=== PATIENT | female | born 1950 | race Caucasian/White ===

== ENCOUNTER 2020-10-03 08:21 | Emergency (ER) | payer MEDICARE, OTHER, SELFPAY ==
--- NOTE | ~2020-10-03 | XR_ITS ---
EXAMINATION: XR lumbar spine 2-3V DATE: 10/03/2020 09:02 INDICATION: Back pain. TECHNIQUE: 3 views of lumbar spine were obtained. COMPARISON: CT abdomen and pelvis 10/12/2015 FINDINGS: There is 7 degrees dextrocurvature of lumbar spine. There is 4 mm retrolisthesis of L1 on L 2 and 3 mm retrolisthesis of L2 on L3. There is a compression fracture of superior endplate with less than 1/5 loss of height, new from 10/12/2015. There is multilevel mild to moderate facet joint osteoar thritis. Surgical clips in the right upper quadrant are likely from cholecystectomy. There is severe ly decreased disc height at L1-L2. IMPRESSION: 1. Compression fracture of L5, most likely chronic. 2. Severe degenerative disc disease at L1-L2. Reviewed, dictated and finalized at location A.
--- NOTE | ~2020-10-03 | CT_ITS ---
EXAMINATION: CT lumbar spine wo con DATE: 10/03/2020 10:07 INDICATION: Compression fracture. TECHNIQUE: Computed tomography (CT) of the lumbar spine was performed without intravenous contrast. A utomated exposure control and iterative reconstruction technique were employed. The dose-length produ ct was 162.50 mGy-cm. COMPARISON: Lumbar spine radiographs 10/03/2020 FINDINGS: There is 5 degrees dextrocurvature of lumbar spine. There is 4 mm retrolisthesis of L1 on L 2. There is a chronic burst fracture of superior endplate of L5 with 1/5 loss of height. There is sev erely decreased disc height at L1-L2 with endplate remodeling. The following disc levels are specific ally discussed: L1-L2: The disc is bulging. There is mild bilateral facet joint osteoarthritis. There is mild bilater al neural foraminal stenosis. There is mild central canal stenosis. L2-L3: The disc is bulging. There is mild bilateral facet joint osteoarthritis. There is mild bilater al neural foraminal stenosis. There is mild central canal stenosis. L3-L4: The disc is bulging. There is mild right and moderate left facet joint osteoarthritis. There i s mild bilateral neural foraminal stenosis. There is mild central canal stenosis. L4-L5: The disc is bulging. There is mild bilateral facet joint osteoarthritis. There is mild bilater al neural foraminal stenosis. There is mild central canal stenosis. L5-S1: The disc is bulging. There is moderate right and severe left facet joint osteoarthritis. There is mild bilateral neural foraminal stenosis. There is mild central canal stenosis. IMPRESSION: 1. No acute fracture. 2. Severe lumbar spondylosis. Reviewed, dictated and finalized at location A.
[2020-10-03 08:33] VITALS: BP 148/61; PULSE 68; RESP 20; TEMP 36.7; O2SAT 100
--- NOTE | 2020-10-03 08:40 | PC.NURSE ---
PT ATTEMPTED TO PROVIDE URINE SAMPLE. STATES UNABLE TO VOID AT THIS TIME. STATES WILL TRY AGAIN LATER. WILL CONTINUE TO MONITOR
[2020-10-03 09:09] LABS: Basophils Percent Auto 0.6 % (0.2-1.2); Eosinophils Absolute Auto 0.1 K/mm3 (0-0.3); Hematocrit 42.4 % (37.0-47.0); Hemoglobin 14.1 g/dL (12.0-15.0); Immature Granulocyte Absolute 0.01 K/mm3 (0.00-0.031); Immature Granulocyte Percent A 0.2 % (0-0.5); Lymphocytes Absolute Auto 1.39 K/mm3 (0.9-3.2); Lymphocytes Percent Auto 26.7 % (18.3-44.2); Mean Corpuscular HGB Conc 33.3 g/dl (32-36); Mean Corpuscular Hemoglobin 30.5 pg (26-34); Mean Corpuscular Volume 91.6 fl (80-100); Monocytes Absolute Auto 0.3 K/mm3 (0.1-0.6); Monocytes Percent Auto 6.1 % (2.6-8.5); Neutrophils Absolute Auto 3.4 K/mm3 (1.3-6.7); Neutrophils Percent Auto 65.4 % (45.5-73.1); Platelet Count Result 266 k/mm3 (150-375); Red Blood Count 4.63 M/mm3 (4.2-5.4); Red Cell Distribution Width 12.6 % (11.5-14.5); White Blood Count 5.2 K/mm3 (4.5-10.0)
[2020-10-03] MEDS: KETOROLAC 15 MG/ML VIAL (*BKC) IV PUSH (09:11)
[2020-10-03 09:20] LABS: Alanine Aminotransferase 17 U/L (4-35); Albumin Level 4.7 g/dL (3.5-5.1); Alkaline Phosphatase 87 U/L (38-126); Anion Gap 9 mmol/L (8-16); Aspartate Amino Transferase 28 U/L (14-36); Bilirubin,Total 0.8 mg/dL (0.2-1.3); Blood Urea Nitrogen 17 mg/dL (7-17); Calcium 9.7 mg/dL (8.4-10.2); Carbon Dioxide 29 mmol/L (22-30); Chloride 104 mmol/L (98-107); Estimated CRCL calculation 49 ml/min; Estimated Glomerular Filt Rate > 60; Glucose 118 mg/dL (65-105); Sodium 142 mmol/L (137-145)
--- NOTE | 2020-10-03 09:41 | ED.BACK ---
HPI - Back Pain/Injury General Chief Complaint: Back Pain/Injury Stated Complaint: Possible Kidney Stones Time Seen by Provider: 10/03/20 08:34 Source: patient Mode of arrival: ambulatory Limitations: no limitations History of Present Illness HPI Narrative: This is a 70 year old female who presents for evaluation of low back pain. She developed low back pain yesterday. Her pain has been constant but nonradiating. She states her pain is worse with bending and movement. She denies any trauma. She last took tylenol last night and her pain is 8/10. She denies dysuria, gross hematuria, urinary retention, urinary or bowel incontinence, fever chills, numbness, tingling or weakness. Related Data Home Medications Medication Instructions Recorded Confirmed aspirin 81 mg tablet,delayed 81 mg PO DAILY 01/09/20 01/31/20 release atorvastatin 40 mg tablet 40 mg PO DAILY 01/09/20 01/31/20 cholecalciferol (vitamin D3) 50 100 mcg PO DAILY cap 01/09/20 01/31/20 mcg (2,000 unit) capsule lisinopril 20 mg tablet 20 mg PO DAILY 01/09/20 01/31/20 metoprolol succinate 100 mg 100 mg PO BID 01/09/20 01/31/20 tablet,extended release 24 hr nitroglycerin 0.4 mg sublingual 0.4 mg SUBLINGUAL Q5M PRN 01/09/20 01/31/20 tablet amlodipine 5 mg tablet 10 mg PO DAILY tablet 01/31/20 01/31/20 Allergies Allergy/AdvReac Type Severity Reaction Status Date / Time meperidine Allergy Severe RED STREAK Unverified 10/03/20 11:10 UP ARM IMMED AFTER INJECTION propoxyphene AdvReac Mild VOMITING Unverified 10/03/20 11:10 codeine AdvReac Unknown Nausea Verified 10/03/20 11:10 morphine AdvReac Unknown Nausea Verified 10/03/20 11:10 narcotics AdvReac Intermediate Nausea Uncoded 10/03/20 11:10 Review of Systems Review of Systems: All systems reviewed & are unremarkable except as noted in HPI and below PMFSH Past Medical History Medical History Allergies CAD (coronary artery disease) HTN (hypertension) Mixed hyperlipidemia Osteoporosis Vitamin D deficiency Surgical History Surgical History History of heart artery stent 2 stents in 2012 History of hysterectomy History of repair of rotator cuff Family History Family History (Updated 01/31/20 @ 07:49 by Anju Dalton [facility]) Mother Carcinoma of colon Cerebrovascular accident Father Family history of pancreatic cancer Social History Social History (Updated 01/31/20 @ 08:02 by Anju Dalton CMA) Smoking status: Never smoker Alcohol intake: current Gender identity (if verbalized by the patient): Female Exam Const: General: alert Nutritional Appearance: thin Eyes: EOM: EOMs intact bilaterally Resp: Effort & Inspection: normal respiratory effort and no retractions Auscultation: clear to auscultation bilaterally Cardio: Rate: regular rate Rhythm: regular rhythm Heart sounds: no murmurs GI: GI Palp: Yes Soft to palpation, No Tenderness to palpation present (GI) and No Guarding due to palpation present (GI) Auscultation: normal bowel sounds Neuro: General: patient oriented x3, moves all extremities and CN's II-XI intact bilaterally Psych: Mental Status: mental status grossly normal Affect: normal affect Course Reevaluation(s) Reevaluation #1: I have reviewed with patient CT scan showing chronic L5 fracture. She will be treated for a UTI Date: 10/03/20 Time: 11:55 Vital Signs Vital signs: Vital Signs Temperature 98.1 F 10/03/20 08:33 Pulse Rate 68 10/03/20 08:33 Respiratory Rate 20 10/03/20 08:33 Blood Pressure 148/61 H 10/03/20 08:33 Pulse Oximetry 100 10/03/20 08:33 Temperature 98.1 F 10/03/20 08:33 Pulse Rate 60 10/03/20 12:26 Respiratory Rate 20 10/03/20 12:26 Blood Pressure 110/80 10/03/20 12:26 Pulse Oximetry 99 10/03/20 12:26 MDM - Back Pain/Injury Medical Records
[2020-10-03 10:40] VITALS: BP 105/88; PULSE 62; RESP 20; O2SAT 100
[2020-10-03 11:26] LABS: Add Urine Microscopic? YES; Appearance Urine Cloudy (Clear); Bacteria Urine Trace /hpf; Bilirubin Urine Negative (Negative); Blood Urine 1+ (Negative); Color Urine Yellow (Yellow); Glucose Urine UA Negative (Negative); Ketones Urine Negative (Negative); Leukocyte Esterase Ur Trace LEU/UL (Negative); Mucus Urine Rare /lpf; Nitrate Urine Positive (Negative); Protein Urine Negative (Negative); Specific Grav Ur 1.016 (1.001-1.035); Squamous Epithelial Cell Urine Few /hpf (Few); WBC Urine 16-20 /hpf
[2020-10-03 12:26] VITALS: BP 110/80; PULSE 60; RESP 20; O2SAT 99
== END 2020-10-03 12:27 | disposition home or self-care (01) ==
PROVIDERS: Emergency Provider General Practice; PCP Internal Medicine
DX: N39.0 Urinary tract infection, site not specified (principal); M48.56XA Collapsed vertebra, not elsewhere classified, lumbar region, initial encounter for fracture; I25.10 Atherosclerotic heart disease of native coronary artery without angina pectoris; I10 Essential (primary) hypertension; E78.2 Mixed hyperlipidemia; M81.0 Age-related osteoporosis without current pathological fracture; E55.9 Vitamin D deficiency, unspecified; Z95.5 Presence of coronary angioplasty implant and graft; Z79.82 Long term (current) use of aspirin; M51.36 Other intervertebral disc degeneration, lumbar region; M47.816 Spondylosis without myelopathy or radiculopathy, lumbar region
CPT/HCPCS: 36415; 72100; 72131; 80053; 81001; 85025; 87077; 87086; 87088; 87186; 96374; 99284; J1885

== ENCOUNTER → 2020-11-21 07:58 | Outpatient (CLI) | payer MEDICARE, OTHER, SELFPAY ==
--- NOTE | ~2020-11-21 | MM_ITS ---
EXAMINATION: MM screening [facility] BI w francisca HISTORY: Screening mammogram TECHNIQUE: Craniocaudal and mediolateral oblique 3-D tomosynthesis images were obtained and synthetic 2-D images were generated. CAD analysis was submitted and interpreted. COMPARISON: 08/25/2017, 06/23/2014, 04/01/2013 BREAST PARENCHYMAL COMPOSITION: The breasts are heterogeneously dense, which may obscure small masses . FINDINGS: There is no evidence of suspicious mass, calcification, or architectural distortion to sugg est malignancy in either breast. There has been no suspicious interval change. IMPRESSION: 1. No mammographic evidence of malignancy. 2. Recommend routine screening mammography in one year. BI-RADS Category 1: Negative Reviewed, dictated and finalized at location A.
--- NOTE | ~2020-11-21 | DEXA_ITS ---
Bone Density Report Name: Leni Dietrich Age: 70 Sex: Female Ethnicity: White Date of : 1950 Indication: postmenopausal osteoporosis; height loss; prior fracture; hysterectomy; Referring Provider: Elisabeth Sanchez Study: Bone densitometry was performed. Exam Date: November 21, 2020 Accession number: [id number] Bone Density: Region BMD T-score Z-score Classification AP Spine (L1-L4) 0.672 -3.4 -1.2 Osteoporosis Femoral Neck (Left) 0.528 -2.9 -1.0 Osteoporosis Total Hip (Left) 0.642 -2.5 -0.9 Osteoporosis Femoral Neck (Right) 0.519 -3.0 -1.1 Osteoporosis Total Hip (Right) 0.623 -2.6 -1.0 Osteoporosis Total Hip Mean 0.633 -2.6 -1.0 Osteoporosis World Health Organization criteria for BMD impression classify patients as: Normal (T-score at or above -1.0), Osteopenia (T-score between -1.0 and -2.5), or Osteoporosis (T-score at or below -2.5). 10-year Fracture Risk: FRAX not reported because: Some T-score for Spine Total or Hip Total or Femoral Neck at or below -2.5 Prior hip or vertebral fracture Previous Exams: Region Exam Age BMD T-score BMD Change BMD Change Date g/cm2 vs Baseline vs Previous AP Spine(L1-L4) 11/21/2020 70 0.672 -3.4 -0.090* -0.090* 12/31/2013 63 0.762 -2.6 Total Hip(Left) 11/21/2020 70 0.642 -2.5 -0.057* -0.057* 12/31/2013 63 0.699 -2.0 Total Hip(Right) 11/21/2020 70 0.623 -2.6 -0.081* -0.081* 12/31/2013 63 0.703 -2.0 *Denotes significance at 95% confidence level, LSC for AP Spine = 0.022 g/cm2, LSC for Total Hip = 0.027 g/cm2 Clinical Information Provided by Patient: Have had a previous hip or vertebral fracture Has had a low trauma fracture Has used the following medications: Vitamin D Has the following medical conditions: Hysterectomy Patient maximum height was 63.0 Menopause Age: 33 No regular weight bearing exercise Does not regularly consume dairy products Onset of menses at age 12 Number of children 5 Impression: The patient has established osteoporosis, based on the Total Spine T-score and the existence of a prior fracture. The patient has risk factors, including: previous fracture. The BMD for the AP Spine(L1-L4) decreased, changing by -0.090 since the last DXA exam. The BMD for the Total Hip(Left) decreased, changing by -0.057 since the last DXA exam. The BMD for the Total Hip(Right) decreased, changing by -0.081 since the last DXA exam. Discussion: HIGH
== END ==
PROVIDERS: Visit Provider Nurse Practitioner
DX: Z12.31 Encounter for screening mammogram for malignant neoplasm of breast (principal); Z78.0 Asymptomatic menopausal state
CPT/HCPCS: 77063; 77067; 77080

== ENCOUNTER → 2022-03-10 09:57 | Outpatient (CLI) | payer MEDICARE, OTHER, SELFPAY ==
--- NOTE | ~2022-03-10 | MR_ITS ---
EXAMINATION: MR lumbar spine wo con DATE: 03/10/2022 10:26 INDICATION: Dorsalgia, unspecified. TECHNIQUE: Magnetic resonance imaging (MRI) of the lumbar spine was performed without intravenous con trast. Sequences included sagittal T2-weighted FSE, sagittal T2-weighted FS FSE, sagittal T1-weighted FSE, and axial T2-weighted FSE. COMPARISON: CT lumbar spine 10/03/2020 FINDINGS: There is 4 degrees dextrocurvature of lumbar spine. There is 3 mm retrolisthesis of L1 on L 2 and L2 on L3. There is a chronic compression fracture of L5 with 1/5 loss of height. There is sever chastity decreased disc height at L1-L2. The distal spinal cord signal intensity is normal. The conus medu llaris is at L2. There are Tarlov cysts in the sacrum. The following disc levels are specifically dis cussed: L1-L2: The disc is bulging. There is no facet joint osteoarthritis. There is mild bilateral neural fo raminal stenosis. There is mild central canal stenosis. L2-L3: The disc is bulging and has an annular fissure. There is mild bilateral facet joint osteoarthr itis. There is mild bilateral neural foraminal stenosis. There is no central canal stenosis. L3-L4: The disc is bulging. There is mild right and severe left facet joint osteoarthritis. There is mild bilateral neural foraminal stenosis. There is no central canal stenosis. L4-L5: The disc is bulging. There is mild right and moderate left facet joint osteoarthritis. There i s mild bilateral neural foraminal stenosis. There is mild central canal stenosis. L5-S1: The disc is bulging. There is moderate right and severe left facet joint osteoarthritis. There is mild bilateral neural foraminal stenosis. There is mild central canal stenosis. IMPRESSION: 1. Severe spondylosis at L1-L2 and mild spondylosis at other levels. Reviewed, dictated and finalized at location A.
== END ==
PROVIDERS: PCP Internal Medicine; Visit Provider Clinical Nurse Specialist
DX: M47.817 Spondylosis without myelopathy or radiculopathy, lumbosacral region (principal); M48.07 Spinal stenosis, lumbosacral region
CPT/HCPCS: 72148

== ENCOUNTER 2022-03-30 08:44 | Outpatient (CLI) | payer MEDICARE, OTHER, SELFPAY ==
--- NOTE | ~2022-03-30 | CT_ITS ---
EXAMINATION: CT abdomen pelvis wo/w con DATE: 03/30/2022 09:43 INDICATION: Renal cysts TECHNIQUE: Computed tomography (CT) of the abdomen was performed without intravenous contrast. CT of the abdomen and pelvis was then performed with a total of 100 mL Omnipaque 350 intravenous contrast. The dose-length product (DLP) was 360.38 mGy-cm. Automated exposure control and iterative reconstruct ion technique were employed. COMPARISON: 10/12/2015 FINDINGS: Minimal dependent atelectasis is present in the lung bases. The heart size is normal. The g allbladder is surgically absent. There is mild enlargement of the common bile duct and central intrah epatic ducts which is likely due to post cholecystectomy state. The gallbladder is surgically absent. Punctate calcifications in an otherwise normal spleen likely represent healed granulomatous disease. There is a 2 mm nonobstructing stone of the right kidney. Cysts of the left kidney measure up to 4.8 cm. Cysts of the right kidney measure up to 7 mm. There is no hydronephrosis or hydroureter. There i s calcified atherosclerosis of the aorta and many of the other arteries. No pathologically enlarged a bdominal or pelvic lymph nodes are identified. There is no free intraperitoneal gas or evidence of lucille wel obstruction. A chronic L5 compression fracture is again noted. There is severe lumbar spondylosis at L1-2. IMPRESSION: 1. Cysts of the kidneys measuring up to 4.8 cm on the left. 2. Nonobstructing right nephrolithiasis Reviewed, dictated and finalized at location A.
[2022-03-30 09:30] LABS: Estimated Glomerular Filt Rate > 60
== END 2022-03-30 08:45 ==
PROVIDERS: PCP Internal Medicine; Visit Provider Nurse Practitioner Family
DX: N28.1 Cyst of kidney, acquired (principal); N20.0 Calculus of kidney
CPT/HCPCS: 74178; Q9967

== ENCOUNTER 2023-08-17 03:53 | Emergency (ER) | payer MEDICARE, OTHER, SELFPAY ==
[2023-08-17 03:54] VITALS: BP 146/65; PULSE 84; RESP 16; TEMP 36.6; O2SAT 100
[2023-08-17 04:35] VITALS: BP 139/60; PULSE 71; RESP 18; O2SAT 100
--- NOTE | 2023-08-17 04:56 | ED.BACK ---
HPI - Back Pain/Injury General Chief Complaint: Back Pain/Injury Stated Complaint: low back pain Time Seen by Provider: 08/17/23 04:10 History of Present Illness HPI Narrative: Patient is a 73-year-old female who presents to the emergency department this evening complaining of lower back pain. Patient states that she does have a known history of a lumbar compression fracture of L5. Patient denies any recent falls or recent trauma and states that she works at [employer] and recently has been walking a lot and spending a lot of time on her feet which could be precipitating her back pain. Patient denies any history of cancer, any history of IV drug use, any history of AAA and is currently urinary symptoms including dysuria or hematuria. Patient denies any fevers or chills, any bowel or bladder incontinence any numbness and/or tingling. There are no other modifying, alleviating, or precipitating factors at this time. Related Data Home Medications Medication Instructions Recorded Confirmed aspirin 81 mg tablet,delayed 81 mg PO DAILY 01/09/20 07/04/22 release (Adult Low Dose Aspirin) atorvastatin 40 mg tablet (Lipitor) 40 mg PO DAILY 01/09/20 07/04/22 cholecalciferol (vitamin D3) 50 100 mcg PO DAILY 01/09/20 07/04/22 mcg (2,000 unit) capsule lisinopril 20 mg tablet 20 mg PO DAILY 01/09/20 07/04/22 metoprolol succinate 100 mg 100 mg PO BID 01/09/20 07/04/22 tablet,extended release 24 hr nitroglycerin 0.4 mg sublingual 0.4 mg sublingual Q5M PRN (Drug) 01/09/20 07/04/22 tablet Ingestion amlodipine 5 mg tablet 10 mg PO DAILY 01/31/20 07/04/22 ezetimibe 10 mg tablet (Zetia) 10 mg PO DAILY 11/12/21 07/04/22 Allergies Allergy/AdvReac Type Severity Reaction Status Date / Time meperidine Allergy Severe RED STREAK Verified 08/17/23 04:37 UP ARM IMMED AFTER INJECTION propoxyphene AdvReac Mild VOMITING Verified 08/17/23 04:37 codeine AdvReac Unknown Nausea Verified 08/17/23 04:37 morphine AdvReac Unknown Nausea Verified 08/17/23 04:37 narcotics AdvReac Intermediate Nausea Uncoded 08/17/23 04:37 Review of Systems Review of Systems: All systems are reviewed and are negative unless stated otherwise in the HPI. [facility] Past Medical History Medical History Allergies CAD (coronary artery disease) HTN (hypertension) Mixed hyperlipidemia Osteoporosis Vitamin D deficiency Surgical History Surgical History History of heart artery stent 2 stents in 2012 History of hysterectomy History of repair of rotator cuff Family History Family History Mother Carcinoma of colon Cerebrovascular accident Father Family history of pancreatic cancer Social History Social History Smoking status: Never smoker Alcohol intake: current Alcohol use details: occasional Lack of Transportation: No Lack of Food: Never True Current Housing: I Have Housing Concerned About Future Housing: No Difficulty Paying Gas/Electric Bills: No Difficulty Paying for Meds: No Currently Unemployed: No Education: Bachelor's Degree Difficulty w/ Childcare or Family Care: No Gender identity (if verbalized by the patient): Female Exam Narrative: General: Alert, awake, afebrile, in no acute distress. HEENT: PERRL, no rhinorrhea, no post nasal drip, oropharynx clear. Neck: Trachea midline, no JVD, no lymphadenopathy. Cardiovascular: Regular rate and rhythm, no murmurs, rubs or gallops, no peripheral edema. Respiratory: Clear to auscultation bilaterally, no tachypnea, no wheezing, no rhonchi, no rubs, no respiratory distress. Abdomen: Soft, nontender, nondistended, no rebound, no guarding, no peritoneal signs. Musculoskeletal: No joint swelling or deformity, normal muscle tone. Back: No m
[2023-08-17] MEDS: LIDOCAINE 5% PATCH 2 PATCH TRANSDERM (05:08)
[2023-08-17] MEDS: KETOROLAC 30 MG/ML VIAL (*BKC) 15 MG IM (05:08)
== END 2023-08-17 05:38 | disposition home or self-care (01) ==
PROVIDERS: Emergency Provider Emergency Medicine; PCP Internal Medicine
DX: S39.012A Strain of muscle, fascia and tendon of lower back, initial encounter (principal); I25.10 Atherosclerotic heart disease of native coronary artery without angina pectoris; I10 Essential (primary) hypertension; E78.2 Mixed hyperlipidemia; X58.XXXA Exposure to other specified factors, initial encounter
CPT/HCPCS: 96372; 99283; A9270; J1885

== ENCOUNTER 2024-01-31 05:07 | Observation (INO) | payer MEDICARE, OTHER, SELFPAY ==
[2024-01-31] VITALS (8 sets, daily range): BP systolic 102–162; BP diastolic 52–92; PULSE 48–74; RESP 14–18; TEMP 35.6–36.6; O2SAT 98–100; BMI 18.9
--- NOTE | ~2024-01-31 | CT_ITS ---
EXAMINATION: CTA brain carotid DATE: 01/31/2024 07:00 INDICATION: Dizziness. TECHNIQUE: Computed tomographic angiography (CTA) of the head was performed with 100 mL Omnipaque-350 intravenous contrast. CTA of the neck was performed with intravenous contrast. Automated exposure co ntrol and iterative reconstruction technique were employed. The dose-length product was 896.00 mGy-cm . Maximum intensity projection and volume rendered 3D-reconstructions were created by the [employer] t on a separate workstation. COMPARISON: Head CT 01/31/2024 FINDINGS: HEAD CTA: There are scattered areas of low attenuation in the cerebral white matter, which is within normal limits for the patient's age. There is no intracranial hemorrhage, acute infarction, or abnorm al intracranial mass lesion. The ventricles are normal in size. There are likely changes of ocular le ns replacement surgeries. There is mild mucosal thickening in the paranasal sinuses. The mastoid air cells are normal. Right vertebral artery is dominant. There is no significant stenosis of the basilar artery or the posterior cerebral arteries. There is no significant stenosis of the intracranial inte rnal carotid arteries or anterior or middle cerebral arteries. Anterior communicating artery is frank l. The posterior communicating arteries are normal. There is no aneurysm. NECK CTA: The lungs demonstrate mild scarring in the upper lobes. There are nodules in the thyroid me asuring up to 9 mm, likely not clinically significant. There are no pathologically enlarged lymph nod es. There is no significant stenosis of the vertebral arteries. There is plaque in the proximal inter nal carotid arteries. There is 0% stenosis of the proximal right internal carotid artery relative to normal distal artery lumen diameter (NASCET criteria). There is 0% stenosis of the proximal left inte rnal carotid artery relative to normal distal artery lumen diameter. There is severe cervical spondyl osis. IMPRESSION: 1. Normal aging brain. 2. No aneurysm or significant intracranial arterial stenosis. 3. 0% stenosis of the proximal internal carotid arteries relative to normal distal artery lumen diame ters (NASCET criteria). Reviewed, dictated and finalized at location A. IMPRESSION: 1. Normal aging brain. 2. No aneurysm or significant intracranial arterial stenosis. 3. 0% stenosis of the proximal internal carotid arteries relative to normal dis cam artery lumen diameters (NASCET criteria).
--- NOTE | ~2024-01-31 | CT_ITS ---
EXAMINATION: CT brain wo con DATE: 01/31/2024 05:59 INDICATION: Dizziness. TECHNIQUE: Computed tomography (CT) of the head was performed without intravenous contrast. The mA wa s adjusted according to patient size. Iterative reconstruction technique was employed. The dose-lengt h product was 605.33 mGy-cm. COMPARISON: Head CT 01/25/2013 FINDINGS: There are scattered areas of low attenuation in the cerebral white matter, which is within normal limits for the patient's age. There is no intracranial hemorrhage, acute infarction, or abnorm al intracranial mass lesion. The ventricles are normal in size. There is mild mucosal thickening in t he paranasal sinuses. There are likely changes of ocular lens replacement surgeries. The mastoid air cells are normal. IMPRESSION: 1. Normal imaging brain. Reviewed, dictated and finalized at location A. IMPRESSION: 1. Normal imaging brain.
--- NOTE | ~2024-01-31 | MR_ITS ---
MR brain/brain stem wo/w con Ordering provider: Adwoa Jimenez MD History: 73 years Female with . horizontal nystagmus, at rest. dizziness . Comparison: CT head performed yesterday. Technique: MRI brain was performed with and without contrast. 10 mL of MultiHance was given IV. FINDINGS: BONES: Normal. CRANIOCERVICAL JUNCTION: normal. PITUITARY: Normal. MAJOR INTRACRANIAL VESSELS: Normal flow void. OPTIC NERVES AND CRANIAL NERVES VII AND VIII COMPLEXES: Grossly normal. BRAIN PARENCHYMA AND CSF SPACES: No visible white matter disease. The brainstem and cerebellum are n ormal. No acute or chronic intracranial hemorrhage. No extra axial fluid collections. Diffusion weigh shamika and ADC mapping images reveal no recent ischemia. No midline shift or mass effect. No abnormal co ntrast enhancement. PARANASAL SINUSES: Bilateral ethmoid sinus disease. MASTOIDS: Normal SUPERFICIAL/SURROUNDING SOFT TISSUES: Normal. IMPRESSION: 1. No acute intracranial process. 2. No abnormal enhancement. Reviewed, dictated and finalized at location A.
--- NOTE | ~2024-01-31 | XR_ITS ---
EXAMINATION: XR chest 1V portable DATE: 01/31/2024 06:07 INDICATION: Dizziness. TECHNIQUE: A single frontal view of the chest was obtained. COMPARISON: Chest 2 views 07/28/2014 FINDINGS: There is stable mild scarring at the lung apices. No pleural effusion or pneumothorax. The heart size is normal. IMPRESSION: 1. No acute cardiopulmonary disease. Reviewed, dictated and finalized at location A.
--- NOTE | 2024-01-31 05:17 | ECG_ITS ---
Test Date: 2024-01-31 05:21:13 Measurements Intervals [place] Rate: 66 P: 35 CO: 131 QRS: 56 QRSD: 96 T: 53 QT: 420 QTc: 440 Interpretive Statements SINUS RHYTHM No previous ECG available for comparison Electronically Signed On 01-31-2024 16:02:05 CDT by Alyse Kaplan M.D.
[2024-01-31] MEDS: SODIUM CHLORIDE 0.9% IV 1,000 ML 999 ML IV CONT ×2 (05:38→07:01)
[2024-01-31 05:39] LABS: Basophils Percent Auto 0.6 % (0.2-1.2); Eosinophils Absolute Auto 0.1 K/mm3 (0-0.3); Eosinophils Percent Auto 1.1 % (0-4.4); Hematocrit 41.1 % (37.0-47.0); Hemoglobin 13.6 g/dL (12.0-15.0); Immature Granulocyte Absolute 0.01 K/mm3 (0.00-0.031); Immature Granulocyte Percent A 0.2 % (0-0.5); Lymphocytes Absolute Auto 2.07 K/mm3 (0.9-3.2); Lymphocytes Percent Auto 33.2 % (18.3-44.2); Mean Corpuscular HGB Conc 33.1 g/dl (32-36); Mean Corpuscular Hemoglobin 30.5 pg (26-34); Mean Corpuscular Volume 92.2 fl (80-100); Mean Platelet Volume 8.9 fl (7.4-10.4); Monocytes Absolute Auto 0.5 K/mm3 (0.1-0.6); Monocytes Percent Auto 8.5 % (2.6-8.5); Neutrophils Absolute Auto 3.5 K/mm3 (1.3-6.7); Neutrophils Percent Auto 56.4 % (45.5-73.1); Platelet Count Result 242 k/mm3 (150-375); Red Blood Count 4.46 M/mm3 (4.2-5.4); Red Cell Distribution Width 13.2 % (11.5-14.5); White Blood Count 6.2 K/mm3 (4.5-10.0)
[2024-01-31] MEDS: MECLIZINE HCL 25 MG TABLET PO (05:39)
[2024-01-31] MEDS: diazePAM INJ (*CRX) 10 MG/2 ML SYRINGE 5 MG IV PUSH ×2 (05:40→07:01)
[2024-01-31] MEDS: PROCHLORPERAZINE EDISYLATE 10 MG/2 ML VIAL IV PUSH (05:41)
[2024-01-31 05:49] LABS: Lactic Acid Reflex 1.8 mmol/L (0.7-2.0)
[2024-01-31 05:50] LABS: Alanine Aminotransferase 15 U/L (6-35); Albumin Level 4.3 g/dL (3.5-5.1); Alkaline Phosphatase 71 U/L (38-126); Anion Gap 9 mmol/L (4-12); Aspartate Amino Transferase 27 U/L (14-36); Blood Urea Nitrogen 13 mg/dL (7-17); Calcium 9.1 mg/dL (8.4-10.2); Carbon Dioxide 27 mmol/L (22-30); Chloride 103 mmol/L (98-107); Estimated CRCL calculation 55 ml/min; Estimated Glomerular Filt Rate > 60; Glucose 124 mg/dL (65-110); Magnesium 2.1 mg/dL (1.6-2.3); Potassium 3.4 mmol/L (3.4-5.0); Sodium 139 mmol/L (137-145)
[2024-01-31 05:55] LABS: INR 0.9; Prothrombin Time 12.6 Seconds (11.1-14.7)
[2024-01-31 05:56] LABS: Partial Thromboplastin Time 27.3 Seconds (22.3-36.8)
--- NOTE | 2024-01-31 05:59 | ED.GENADULT ---
HPI - General Adult General Chief complaint: Dizziness <Naveen Reina MD - Last Filed: 01/31/24 06:08> Stated complaint: I feel so dizzy I feel like I may fall over <Naveen Reina MD - Last Filed: 01/31/24 06:08> Time Seen by Provider: 01/31/24 05:11 <Naveen Reina MD - Last Filed: 01/31/24 06:08> History of Present Illness HPI narrative: Patient 73-year-old female who presents emergency department with chief complaint of dizziness. Patient reports she went to sleep around 9-930 p.m. last night and woke up feeling as though the room is spinning patient reports that his present even when she is sitting still but is worsened whenever she turns her head from side to side patient reports that she did have a fall on the 13 of December and reports that she did not have any count of evaluation patient denies being on anticoagulants reports he does take a baby aspirin patient reports that the symptoms have caused some nausea but no vomiting patient reports that she is having a difficult time ambulating due to feeling unsteady <Naveen Reina MD - Last Filed: 01/31/24 06:08> Related Data Home medications: Home Medications Medication Instructions Recorded Confirmed aspirin 81 mg tablet,delayed 81 mg PO DAILY 01/09/20 12/26/23 release (Adult Low Dose Aspirin) atorvastatin 40 mg tablet (Lipitor) 40 mg PO DAILY 01/09/20 12/26/23 cholecalciferol (vitamin D3) 50 100 mcg PO DAILY 01/09/20 12/26/23 mcg (2,000 unit) capsule lisinopril 20 mg tablet 20 mg PO DAILY 01/09/20 12/26/23 metoprolol succinate 100 mg 100 mg PO BID 01/09/20 12/26/23 tablet,extended release 24 hr nitroglycerin 0.4 mg sublingual 0.4 mg sublingual Q5M PRN (Drug) 01/09/20 12/26/23 tablet Ingestion amlodipine 5 mg tablet 10 mg PO DAILY 01/31/20 12/26/23 ezetimibe 10 mg tablet (Zetia) 10 mg PO DAILY 11/12/21 12/26/23 <Naveen Reina MD - Last Filed: 01/31/24 06:08> Allergies/adverse reactions: Allergies Allergy/AdvReac Type Severity Reaction Status Date / Time meperidine Allergy Severe RED STREAK Verified 01/31/24 05:17 UP ARM IMMED AFTER INJECTION propoxyphene AdvReac Mild VOMITING Verified 01/31/24 05:17 codeine AdvReac Unknown Nausea Verified 01/31/24 05:17 morphine AdvReac Unknown Nausea Verified 01/31/24 05:17 narcotics AdvReac Intermediate Nausea Uncoded 01/31/24 05:17 <Naveen Reina MD - Last Filed: 01/31/24 06:08> Review of Systems Review of Systems: A 10 system review of systems was completed on the patient and is negative except for what is stated in the HPI. Nursing and ancillary documentation was reviewed. <Naveen Reina MD - Last Filed: 01/31/24 06:08> [facility] Past Medical History Medical History: Medical History Allergies Anal fissure CAD (coronary artery disease) Frequent UTI Hemorrhoid HTN (hypertension) Mixed hyperlipidemia Osteoporosis Respiratory tract infection Urinary tract infection Vitamin D deficiency <Naveen Reina MD - Last Filed: 01/31/24 06:08> Surgical History Surgical History: Surgical History History of heart artery stent 2 stents in 2011 History of hysterectomy History of repair of rotator cuff <Naveen Reina MD - Last Filed: 01/31/24 06:08> Family History Family History: Family History Mother Carcinoma of colon Cerebrovascular accident Father Family history of pancreatic cancer <Naveen Reina MD - Last Filed: 01/31/24 06:08> Social History Social History: Social History Smoking status: Never smoker Alcohol intake: current Alcohol use details: occasional
[2024-01-31 06:02] LABS: Troponin I < 0.012 ng/mL (0.000-0.034)
[2024-01-31] MEDS: ONDANSETRON INJ 4 MG/2 ML VIAL IV PUSH (07:01)
[2024-01-31 07:32] LABS: Add Urine Microscopic? YES; Appearance Urine Clear (Clear); Bacteria Urine None Seen /hpf; Bilirubin Urine Negative (Negative); Blood Urine Negative (Negative); Color Urine Yellow (Yellow); Glucose Urine UA Negative (Negative); Ketones Urine Negative (Negative); Leukocyte Esterase Ur Trace LEU/UL (Negative); Nitrate Urine Negative (Negative); Non Pathogenic Casts 0-2; Protein Urine Negative (Negative); RBC Urine 0-2 /hpf (0-2); Specific Grav Ur 1.009 (1.001-1.035); Squamous Epithelial Cell Urine None Seen /hpf (Few); Urobilinogen Urine 0.2 mg/dL (<2.0); WBC Urine 0-5 /hpf (0-3); pH Urine 7.5 (5.0-9.0)
--- NOTE | 2024-01-31 09:28 | ADMGEN ---
This patient, Leni Dietrich, was admitted to Medical Room 349-01. Patient/family oriented to hospital policies and general routines including ID bracelet, bed and alarms, visiting hours, pain management, procedures, bathroom and other care routines, personal items, smoking policy, room service/diet, and visiting hours. Information on how to activate the Rapid Response Team has been discussed. Patient/Family are encouraged to report perceived risks to care and to ask questions if they do not understand what they are told or what they should do.
[2024-01-31 10:03] LABS: Troponin I < 0.012 ng/mL (0.000-0.034)
--- NOTE | 2024-01-31 13:39 | PM.IMHP ---
H&P: HPI History of Present Illness Date/Time: 01/31/24 13:39 Chief Complaint: dizziness Narrative: 73 year old lady history of CAD (coronary artery disease), HTN (hypertension), Mixed hyperlipidemia, Osteoporosis and Vitamin D deficiency. Admitted with dizziness this morning. Pt states her dizziness started this morning around 9 am felt like the whole room is spinning. pt denies THOMAS, fever diarrhea or vomiting or hearing problems. Pt has been under some stress with her sons ill health was in and out of the hospital. Pt states she has not been sleeping much and looks very tired today. Pt had Mri brain which was negative, cxr was nl, CT head and CTA were nl. labs are good except her glucose levels are over 124. Review of Systems Review of Systems: Pt positive for tiredness and dizziness. All other 12 systems are reviewed with pt and are negative PMFSH Past Medical History Medical History Allergies Anal fissure CAD (coronary artery disease) Frequent UTI Hemorrhoid HTN (hypertension) Mixed hyperlipidemia Osteoporosis Respiratory tract infection Urinary tract infection Vitamin D deficiency Surgical History Surgical History History of heart artery stent 2 stents in 2011 History of hysterectomy History of repair of rotator cuff Family History Family History Mother Carcinoma of colon Cerebrovascular accident Father Family history of pancreatic cancer Social History Social History Smoking status: Never smoker Alcohol intake: former Alcohol use details: occasional Substance use: never Do You Feel Safe in your Home?: Yes Lack of Transportation: No Lack of Food: Never True Current Housing: I Have Housing Concerned About Future Housing: No Difficulty Paying Gas/Electric Bills: No Difficulty Paying for Meds: No Currently Unemployed: No Education: Bachelor's Degree Difficulty w/ Childcare or Family Care: No Gender identity (if verbalized by the patient): Female Spiritual care concerns: No Meds Home Medications and Allergies Home Medications Medication Instructions Recorded Confirmed Type aspirin 81 mg tablet,delayed 81 mg PO DAILY 01/09/20 01/31/24 History release (Adult Low Dose Aspirin) atorvastatin 40 mg tablet (Lipitor) 40 mg PO DAILY 01/09/20 01/31/24 History cholecalciferol (vitamin D3) 50 100 mcg PO DAILY 01/09/20 01/31/24 History mcg (2,000 unit) capsule lisinopril 20 mg tablet 20 mg PO BID 01/09/20 01/31/24 History metoprolol succinate 100 mg 100 mg PO BID 01/09/20 01/31/24 History tablet,extended release 24 hr nitroglycerin 0.4 mg sublingual 0.4 mg sublingual Q5M PRN (Drug) 01/09/20 01/31/24 History tablet Ingestion amlodipine 5 mg tablet 10 mg PO DAILY 01/31/20 01/31/24 History hydrocortisone 2.5 % topical cream 1 applic RECTAL DAILY PRN 11/24/20 01/31/24 Rx with perineal applicator hemorrhoids #30 grams (Proctosol HC) ezetimibe 10 mg tablet (Zetia) 10 mg PO DAILY 11/12/21 01/31/24 History fluticasone propionate 50 1 spray intranasal Q12H #16 grams 08/08/22 01/31/24 Rx mcg/actuation nasal spray,suspension (Flonase Allergy Relief) oxybutynin chloride 5 mg tablet 5 mg PO BID #180 tabs 01/23/24 01/31/24 Rx Allergies Allergy/AdvReac Type Severity Reaction Status Date / Time meperidine Allergy Severe RED STREAK Verified 01/31/24 05:17 UP ARM IMMED AFTER INJECTION propoxyphene AdvReac Mild VOMITING Verified 01/31/24 05:17 codeine AdvReac Unknown Nausea Verified 01/31/24 05:17 morphine AdvReac Unknown Nausea Verified 01/31/24 05:17 narcotics AdvReac Intermediate Nausea Uncoded 01/31/24 05:17 Vital Signs Vital Signs - 24 hr 01/31/24 05:14 01/31/24 06:36
[2024-01-31] MEDS: ENOXAPARIN 40 MG/0.4 ML SYRINGE SUB-Q (15:11)
--- NOTE | 2024-01-31 16:38 | WPDCN ---
Assessment and Plan Assessment and plan (1) Vertigo: Code(s): R42 - Dizziness and giddiness Status: Acute Plan couple of different possible etiologies. Vestibular neuritis versus migraine vertiginous variant versus BPPV. Patient is okay to discharge from my standpoint if she as she is feeling much better. I get her set up with physical therapy for vestibular rehabilitation and to rule out or rule in BPPV. If that does not help and the symptoms return almost like an attack and consider migraine variant and get her in to see Neurology. During these episodes we can always consider short course of steroids should be vestibular neuritis. HPI Data of Consult Date/Time: 01/31/24 16:38 Requesting Physician: Adwoa Jimenez MD Primary Care Provider: Lucas Willard, Consult Narrative Narrative: Leni Dietrich is a 73 year old female With an acute episode of vertigo. No hearing loss no tinnitus. No ear fullness. Review of Systems Review of Systems: All systems reviewed & are unremarkable except as noted in HPI and below PMFSH Past Medical History Medical History Allergies Anal fissure CAD (coronary artery disease) Frequent UTI Hemorrhoid HTN (hypertension) Mixed hyperlipidemia Osteoporosis Respiratory tract infection Urinary tract infection Vitamin D deficiency Surgical History Surgical History History of heart artery stent 2 stents in 2011 History of hysterectomy History of repair of rotator cuff 2003/2007 Family History Family History Mother Carcinoma of colon Cerebrovascular accident Father Family history of pancreatic cancer Social History Social History Smoking status: Never smoker Alcohol intake: former Alcohol use details: occasional Substance use: never Do You Feel Safe in your Home?: Yes Lack of Transportation: No Lack of Food: Never True Current Housing: I Have Housing Concerned About Future Housing: No Difficulty Paying Gas/Electric Bills: No Difficulty Paying for Meds: No Currently Unemployed: No Education: Bachelor's Degree Difficulty w/ Childcare or Family Care: No Gender identity (if verbalized by the patient): Female Spiritual care concerns: No Meds Home Medications and Allergies Home Medications Medication Instructions Recorded Confirmed Type aspirin 81 mg tablet,delayed 81 mg PO DAILY 01/09/20 01/31/24 History release (Adult Low Dose Aspirin) atorvastatin 40 mg tablet (Lipitor) 40 mg PO DAILY 01/09/20 01/31/24 History cholecalciferol (vitamin D3) 50 100 mcg PO DAILY 01/09/20 01/31/24 History mcg (2,000 unit) capsule lisinopril 20 mg tablet 20 mg PO BID 01/09/20 01/31/24 History metoprolol succinate 100 mg 100 mg PO BID 01/09/20 01/31/24 History tablet,extended release 24 hr nitroglycerin 0.4 mg sublingual 0.4 mg sublingual Q5M PRN (Drug) 01/09/20 01/31/24 History tablet Ingestion amlodipine 5 mg tablet 10 mg PO DAILY 01/31/20 01/31/24 History hydrocortisone 2.5 % topical cream 1 applic RECTAL DAILY PRN 11/24/20 01/31/24 Rx with perineal applicator hemorrhoids #30 grams (Proctosol HC) ezetimibe 10 mg tablet (Zetia) 10 mg PO DAILY 11/12/21 01/31/24 History fluticasone propionate 50 1 spray intranasal Q12H #16 grams 08/08/22 01/31/24 Rx mcg/actuation nasal spray,suspension (Flonase Allergy Relief) oxybutynin chloride 5 mg tablet 5 mg PO BID #180 tabs 01/23/24 01/31/24 Rx Allergies Allergy/AdvReac Type Severity Reaction Status Date / Time meperidine Allergy Severe RED STREAK Verified 01/31/24 05:17 UP ARM IMMED AFTER INJECTION propoxyphene AdvReac Mild VOMITING Verified 01/31/24 05:17 codeine AdvReac Unknown Nausea Verified
[2024-01-31] MEDS: METOPROLOL SUCCINATE EXT REL 100 MG TABCR PO (20:22)
[2024-01-31] MEDS: lisinopriL 20 MG TABLET PO (20:22)
[2024-01-31] MEDS: FLUTICASONE PROPIONATE 0.05% NA SPR 16 GM BTL (*BKC) 1 SPRAY NASAL (20:22)
[2024-01-31] MEDS: MELATONIN 5 MG TABLET PO (20:22)
[2024-02-01] VITALS (8 sets, daily range): BP systolic 102–143; BP diastolic 56–63; PULSE 47–56; RESP 18; TEMP 36.6; O2SAT 96–99
[2024-02-01 07:31] LABS: Hemoglobin A1C 5.7 % (<5.7)
[2024-02-01] MEDS: CHOLECALCIFEROL 1,000 UNITS TABLET 4000 UNITS PO (08:29)
[2024-02-01] MEDS: ATORVASTATIN 40 MG TABLET PO (08:29)
[2024-02-01] MEDS: EZETIMIBE 10 MG TABLET PO (08:29)
[2024-02-01] MEDS: ASPIRIN 81 MG ENTERIC TABLET PO (08:29)
[2024-02-01] MEDS: lisinopriL 20 MG TABLET PO (08:29)
[2024-02-01] MEDS: amLODIPine BESYLATE 10 MG TABLET PO (08:29)
[2024-02-01] MEDS: FLUTICASONE PROPIONATE 0.05% NA SPR 16 GM BTL (*BKC) 1 SPRAY NASAL (08:29)
[2024-02-01] MEDS: oxyBUTYnin CHLORIDE 5 MG TABLET PO (08:29)
[2024-02-01] MEDS: ENOXAPARIN 40 MG/0.4 ML SYRINGE SUB-Q (08:30)
[2024-02-01] MEDS: METOPROLOL SUCCINATE EXT REL 100 MG TABCR PO (08:30)
--- NOTE | 2024-02-01 10:18 | PM.DS ---
DS: Admitting Diagnosis Discharge Date 02/01/2024 Admitting Diagnosis Dizziness DS: Discharge Diagnosis Discharge Diagnosis (1) Dizziness: Code(s): R42 - Dizziness and giddiness Status: Acute Assessment and Plan: Pt complains of dizziness like the room spinning Monitor overnite on telemetry let pt sleep Order PT today and order orthostatics BP manuel order melatonin pt states she has not slept properly past days order meclizine for dizziness and tylenol for any THOMAS Mri was negative orthostatics and telemetry are nl.labs are benign. Pt seen by ENT MD likely vestibular neuronitis pt can have a course of steroids for acute attack Plan pt can use meclizine for now prn dizziness and follow with ENT I pt has THOMAS can call neurology office for apt DR Schilling (2) Horizontal nystagmus: Code(s): H55.09 - Other forms of nystagmus Status: Acute Assessment and Plan: CT head and CTA is negative MRI is negative can consult ENT for further recommendations (3) HTN (hypertension): Qualifiers: Hypertension type: essential hypertension Qualified Code(s): I10 - Essential (primary) hypertension Code(s): I10 - Essential (primary) hypertension Status: Acute Assessment and Plan: chronic and stable continue home meds (4) CAD (coronary artery disease): Code(s): I25.10 - Atherosclerotic heart disease of solomon coronary artery without angina pectoris Status: Acute Assessment and Plan: chronic and stable continue home meds (5) Hyperglycemia: Code(s): R73.9 - Hyperglycemia, unspecified Status: Acute Assessment and Plan: hbaic is 5.7 DM ruled out DS: Summary Hospital Course Hospital Course: 73 year old lady history of CAD (coronary artery disease), HTN (hypertension), Mixed hyperlipidemia, Osteoporosis and Vitamin D deficiency. Admitted with dizziness this morning. Pt states her dizziness started this morning around 9 am felt like the whole room is spinning. pt denies THOMAS, fever diarrhea or vomiting or hearing problems. Pt has been under some stress with her sons ill health was in and out of the hospital. Pt states she has not been sleeping much and looks very tired today. Pt had Mri brain which was negative, cxr was nl, CT head and CTA were nl. labs are good except her glucose levels are over 124. Pt complains of dizziness like the room spinning plan to Monitor overnite on telemetry let pt sleep Order PT today and order orthostatics BP manuel order melatonin pt states she has not slept properly past days order meclizine for dizziness and tylenol for any THOMAS Mri was negative orthostatics and telemetry are nl.labs are benign. Pt seen by ENT MD who believes that it is likely vestibular neuronitis pt can have a course of steroids for acute attack Plan pt can use meclizine for now prn dizziness and follow with ENT Pt seen by Dr Schilling neurology unlikley to be neurological but if pt has THOMAS can call neurology office for apt DR Schilling Time Spent with Patient Time attestation: Total time spent providing and/or coordinating discharge services:50 minutes on day of DC Exam Const: General: cooperative, healthy appearing and overweight; No in distress Nutritional Appearance: overweight Orientation/consciousness: oriented to person HENMT: Head: normal to inspection Resp: Effort & Inspection: no respiratory distress Auscultation: no rhonchi and no wheezes Cardio: Rate: regular rate Rhythm: regular rhythm GI: Inspection: normal to inspection Auscultation: normal bowel sounds Neuro: General: oriented to person DS: Data Data Completed and Pending Labs on day of discharge: Labs from last 24 hours 01/31/24 05:29 Hemoglobin A1c 5.7 Discharge Plan Discharge Attending physician on discharge: Belkis Curry Consulting providers: Pedro Akhtar; Trevor Alfredo Discharging Clinician: Belkis Curry
--- NOTE | 2024-02-01 11:07 | WPDNEURCNPN ---
Assessment and Plan Assessment and plan (1) Benign paroxysmal positional vertigo: Code(s): H81.10 - Benign paroxysmal vertigo, unspecified ear Status: Acute Plan neurological exams and findings were within normal limits. I reviewed the CT angiogram of the head and neck as well as MRI of the brain and opinion from the ENT physician and hospitalist notes were reviewed. radiological studies did not show any abnormality. Her exam is also totally normal. I have explained to her about condition at the symptoms recur she may require vestibular exercises. If I could be of any further assistance I shall be glad to see her again. Consult date: 02/01/24 HPI: Leni Dietrich is a 73 year old female With history of sudden onset of dizziness. The patient woke up with the symptoms. The last or. Of time and thereafter she improved. She is very sick during that time. No history of prior symptoms such as this. At this time she does not have any symptoms. She did not have any headache. She denies any diplopia or difficulty with the speech or swallowing. No change in mental status. No passing out spell. No chest pain or shortness of breath or palpitation. . No hearing loss or tinnitus. She has been through some workup including a MRI of the brain and CT angiogram of the head and neck which did not show any abnormality. She also has been seen by Dr. Carranza our ENT physician and is suspected of benign paroxysmal positional vertigo. Review of Systems Constitutional: Constitutional: Denies chills, Denies fever(s) and Denies weight loss Eyes: Eyes: Denies diplopia and Denies loss of vision ENT: Denies dizziness, Denies hearing loss and Denies tinnitus Cardiovascular: Cardiovascular: Denies chest pain, Denies syncope and Denies dyspnea Respiratory: Respiratory: Denies cough, Denies dyspnea and Denies wheezing Gastrointestinal: Gastrointestinal: Denies abdominal pain, Denies change in bowel habits and Denies vomiting Genitourinary: Genitourinary: Denies urinary incontinence Musculoskeletal: Musculoskeletal: Denies arthralgias and Denies joint swelling Integumentary/Breasts: Skin/Breast: Denies new lesions and Denies rash Neurologic: Reports as per HPI, Reports dizziness, Denies syncope and Denies loss of vision Comments: As described above Psychiatric: Psychiatric: Denies anxiety and Denies depression Endocrine: Endocrine: Denies cold intolerance and Denies heat intolerance Hematologic/Lymphatic: Hematologic/Lymphatic: Denies easy bleeding and Denies easy bruising Allergic/Immunologic: Allergic/Immunologic: Denies no additional allergic/immunologic complaints and Denies wheezing PMFSH Past Medical History Medical History (Updated 02/01/24 @ 11:10 by Anjum Schilling MD) Allergies Anal fissure Benign paroxysmal positional vertigo CAD (coronary artery disease) Frequent UTI Hemorrhoid HTN (hypertension) Mixed hyperlipidemia Osteoporosis Respiratory tract infection Urinary tract infection Vitamin D deficiency Surgical History Surgical History History of heart artery stent 2 stents in 2011 History of hysterectomy History of repair of rotator cuff Family History Family History Mother Carcinoma of colon Cerebrovascular accident Father Family history of pancreatic cancer Social History Social History Smoking status: Never smoker Alcohol intake: former Alcohol use details: occasional Substance use: never Do You Feel Safe in your Home?: Yes Lack of Transportation: No Lack of Food: Never True Current Housing: I Have Housing Concerned About Future Housing: No Difficulty Paying Gas/Electric Bills: No Difficulty Paying for Meds: No Currently Unemployed: No Education: Bachelor's Degree [employer]
== END 2024-02-01 11:37 | disposition home or self-care (01) ==
LOC: ANHED 08:10 → ANH3MED 08:24
PROVIDERS: Admitting Provider General Practice; Emergency Provider Emergency Medicine; PCP Internal Medicine; Visit Provider Family Medicine
DX: R42 Dizziness and giddiness (principal); H55.09 Other forms of nystagmus; R73.9 Hyperglycemia, unspecified; I10 Essential (primary) hypertension; Z79.82 Long term (current) use of aspirin; I25.10 Atherosclerotic heart disease of native coronary artery without angina pectoris; E78.2 Mixed hyperlipidemia; M81.0 Age-related osteoporosis without current pathological fracture; E55.9 Vitamin D deficiency, unspecified
CPT/HCPCS: 36415; 70450; 70496; 70498; 70553; 71045; 80053; 81001; 83036; 83605; 83735; 84484; 85025; 85610; 85730; 93005; 96361; 96372; 96374; 96375; 99285; A9270; A9577; G0378; J0780; J1650; J2405; J3360; J7030; Q9967

== ENCOUNTER 2025-03-19 11:06 | Outpatient (CLI) | payer MEDICARE, OTHER, SELFPAY ==
--- NOTE | ~2025-03-19 | MM_ITS ---
EXAMINATION: MM screening olga BI w francisca HISTORY: Screening TECHNIQUE: Craniocaudal and mediolateral oblique 3-D tomosynthesis images were obtained and synthetic 2-D images were generated. CAD analysis was submitted and interpreted. COMPARISON: Comparison to multiple prior studies sequentially, with oldest reviewed study dated , 03/27/2012 BREAST PARENCHYMAL COMPOSITION: The breasts are heterogeneously dense, which may obscure small masses. FINDINGS: There is no evidence of suspicious mass, calcification, or architectural distortion to suggest malignancy in either breast. IMPRESSION: 1. No mammographic evidence of malignancy. 2. Recommend routine screening mammography in one year. BI-RADS Category 1: Negative Reviewed, dictated and finalized at location B.
== END 2025-03-19 11:07 | disposition home or self-care (01) ==
LOC: MICIMG 11:07
PROVIDERS: PCP Nurse Practitioner; Visit Provider Nurse Practitioner
DX: Z12.31 Encounter for screening mammogram for malignant neoplasm of breast (principal)
CPT/HCPCS: 77063; 77067